=== PATIENT | male | born 1940 | race Caucasian/White ===

== ENCOUNTER 2016-06-24 06:29 | Day surgery (SDC) | payer BC, OTHER ==
[2016-06-18 11:58] VITALS: BMI 28.1
[2016-06-24] MEDS ORDERED: LIDOCAINE HCL 1%, 10 MG/ML (20ML VIAL) ONE (07:22)
[2016-06-24] MEDS ORDERED: BUPIVACAINE HCL/PF 0.5% (5MG/ML) 10 ML VIAL ONE (07:22)
[2016-06-24] MEDS ORDERED: DEXAMETHASONE SOD PHOSPHATE 4 MG/1 ML VIAL ONE (07:24)
[2016-06-24] MEDS ORDERED: ePHEDrine SULFATE 50 MG/1 ML AMPULE ONE (07:24)
[2016-06-24] MEDS ORDERED: CLINDAMYCIN PHOSPHATE 600 MG/4 ML VIAL ONE (07:24)
[2016-06-24] MEDS ORDERED: SODIUM CHLORIDE 0.9% P/F 10 ML VIAL IJ ONE (07:24)
[2016-06-24] MEDS ORDERED: KETOROLAC TROMETHAMINE 30 MG/1 ML VIAL ONE (07:24)
[2016-06-24] MEDS ORDERED: PROPOFOL 20 ML ONE ×3 (07:25)
[2016-06-24] MEDS ORDERED: SUCCINYLCHOLINE CHLORIDE 200 MG/10 ML VIAL ONE ×4 (07:25→07:28)
[2016-06-24] MEDS ORDERED: MIDAZOLAM HCL 2 MG/2 ML SINGLE DOSE VIAL ONE (07:25)
[2016-06-24] MEDS ORDERED: DESFLURANE GAS 240 ML BOTTLE IH ONE (07:38)
[2016-06-24] MEDS ORDERED: CLINDAMYCIN PHOSPHATE 600 MG/4 ML VIAL IVPB ONE (08:09)
[2016-06-24] MEDS ORDERED: LIDOCAINE HCL 1%, 10 MG/ML (20ML VIAL) IJ ONE (08:27)
[2016-06-24] MEDS ORDERED: BUPIVACAINE HCL/PF 0.5% (5MG/ML) 10 ML VIAL IJ ONE (08:28)
--- NOTE | 2016-06-24 08:57 | HP ---
Satellite H - Chief Complaint Chief Complaint: right elbow +hand numbess/pain - Past Medical History Allergies/Adverse Reactions: Allergies Allergy/AdvReac Type Severity Reaction Status Date / Time Penicillins Allergy Intermediate Hives Verified 06/18/16 12:07 - Current Medications Current Medications: Medication Instructions Recorded Cholecalciferol (Vitamin D3) 5,000 unit PO WEEKLY 06/18/16 [Vitamin D3] Levothyroxine [Synthroid -] 75 mcg PO DAILY 06/18/16 Pantoprazole Sodium 40 mg PO DAILY 06/18/16 Hydrocodone/Acetaminophen 1 each PO Q6H #40 tablet MDD 4 06/24/16 [Hydrocodon-Acetaminoph 7.5-325] Satellite Physical Exam - Physical Examination Vital Signs: Vital Signs Period Temp Pulse Resp BP Sys/Mace Pulse Ox Last 24 Hr 97.4 F 72 20 130/81 General Appearance: Well Nourished, Well Developed, Alert & Oriented x3 ENT: Clear Lung: Normal air movement Heart: Regular rate & rhythm Extremities: Other (right hand- + tinels, +phalens right elbow+ tinels emg + cts and cubital tunnel syndrome) Neurological: Intact, Alert, Oriented Satellite Impression/Plan - Impression/Plan Impression: right cts, right cubital tunnel syndrome Operative Procedure: right ctr, ulna nerve transposition Date to be Performed: 06/24/16
[2016-06-24] MEDS ORDERED: ONDANSETRON 4 MG/2 ML VIAL IVPUSH PRN (09:07)
[2016-06-24] MEDS ORDERED: oxyCODONE HCL 5 MG TABLET PO PRN (09:07)
[2016-06-24] MEDS ORDERED: LACTATED RINGERS SOLUTION 1,000 ML IV SCH (09:15)
--- NOTE | 2016-06-24 09:37 | OP ---
Operative Note - Note: Operative Date: 06/24/16 Pre-Operative Diagnosis: right Cubital tunnel syndrome, CTS, tenosynovectomy Operation: right elbow subcutaneous ulnar nerve transposition, CTR, tenosynovectomy Post-Operative Diagnosis: Same as Pre-op Surgeon: Agustin Mac Anesthesiologist/SWAGING MACHINE OPERATOR: Kevin Kenyon Jr. Anesthesia: General, Local Specimens Removed: tenosynovium, right wrist Estimated Blood Loss (mls): 0 Blood Volume Replaced (mls): 0 Fluid Volume Replaced (mls): 700 Operative Report Dictated: Yes
[2016-06-24 10:06] VITALS: TEMP 98.1
[2016-06-24 11:43] VITALS: BP 127/67; PULSE 73
--- NOTE | 2016-06-24 13:41 | SPEC ---
DATE OF OPERATION: 06/24/2016 PREOPERATIVE DIAGNOSIS: Right elbow cubital tunnel syndrome and right carpal tunnel syndrome. POSTOPERATIVE DIAGNOSIS: Right elbow cubital tunnel syndrome and right carpal tunnel syndrome. PROCEDURE: Right elbow subcutaneous ulnar nerve transposition, right carpal tunnel release, tenosynovectomy. SURGEON: Sanchez Molina MD BRICK DROPPER: None. ANESTHESIOLOGIST: Kevin Kenyon CRNA ANESTHESIA: Deep MAC anesthesia, local injection of 15 mL 0.5% Marcaine, 1% lidocaine mixed. DRAINS: None. COMPLICATIONS: None. SPECIMENS: Tenosynovium, right wrist. BLOOD LOSS: None. BLOOD GIVEN: None. FLUID REPLACEMENT: 500 mL INDICATION: The patient is a 75-year-old male with preoperative diagnosis of severe end-stage right cubital tunnel syndrome and carpal tunnel syndrome. After extensive preoperative discussions, the patient understands the potential risks, complications, alternatives, and benefits to surgery versus nonsurgical treatment. He understands that he still will have permanent damage to the nerve due to compression at both the elbow and the wrist. He has severe thenar atrophy and interossei atrophy which will not recover in appearance, but hopefully it will have recovered to some degree as far as strength and function. He also understands he may have a continuation of his numbness and some of the other symptoms associated with the nerve compression. DESCRIPTION OF PROCEDURE: The patient was brought to the operating room, peripheral IV placed and intravenous sedation was given. One gram of intravenous Ancef was given. MAC anesthesia was induced. A tourniquet was applied to the right upper arm and the right upper extremity was prepped and draped in sterile fashion. The entire case was done under 3.8 loupe magnification. A marking pen was utilized to georgie out a longitudinal incision in an already existing skin crease. Twenty mL of 0.5% Marcaine mixed with 1% Lidocaine was injected in and around the surgical incision. The right upper extremity was elevated, exsanguinated with an Esmarch bandage and the tourniquet inflated to 250 mmHg. A No. 15 scalpel blade was utilized to cut down through the skin. Subcutaneous hemostasis was achieved with the bipolar cautery. Dissection was done through the superficial palmar fascia. Self-retaining retractors were placed into the wound. Under direct visualization, the transverse carpal ligament was transected with a No. 15 scalpel blade, exposing the median nerve and the contents of the carpal tunnel. The distal and proximal extents of the release were completed with a Littler scissor and checked with irrigation and my small finger. They were seen to be complete. Limited dissection was done on the radial side of the median nerve and more extensive dissection was done on the ulnar side of the median nerve. The patients nerve was seen to be quite compressed by epineurium and therefore a limited epineurotomy was performed. A Ragnell retractor was used to gently retract the median nerve in a radial direction. The patient had a lot of tenosynovitis and therefore a limited tenosynovectomy was performed off all 9 flexor tendons. This was passed off the field as tenosynovium right wrist. The floor of the carpal tunnel was checked. There were no abnormal masses or ganglion cysts. The area was copiously irrigated and washed out and closure begun. Undyed 4-0 Vicryl was used to close the deep dermal layer. Final skin reapproximation was done with horizontal mattress 4-0 nylon sutures. The area was then washed and dried, covered with Xeroform, 4x4s, fluffs between the fingers, Webril and a 4-inch plaster roll was utilized to make a volar splint, which was then wrapped with Jose Antonio and Coban. Next, the patient's arm was placed onto a bump. A curvilinear incision was marked out over the medial epicondyle. Incision was made with a number 15 scalpel blade. Subcutaneous hemostasis was achieved with a bipolar cautery. Dissection was done down through the adipose layer, exposing the epicondyle. Self-retaining Weitlaner retractors were placed into the wound. First the ulnar nerve was identified proximally, circumferentially freed up, and Mar drain moist with irrigation was passed with a mosquito clamp around it for identification and protection. The release was continued in a more proximal direction. [place] retractors were used for better visualization. I did the release more proximally with both the long Littler scissors and my finger. I then cut out a portion of the medial intermuscular septum. Next, our attention turned more distally. I was able to incise Rincon ligament and free up the ulnar nerve in the cubital tunnel. I then dissected it between the 2 heads of the FCU and freed it up more distally. Great care was taken to preserve all small neurovascular structures. I then was able to transpose it medially over the medial epicondyle. There were no points of compression. It was able to move quite easily. The area was copiously irrigated and washed out. I then used 2-0 Vicryl to close the deep adipose layer onto the medial epicondyle. I again tested the ulnar nerve, and it seemed to have plenty of room and was not bound down. I then closed the deep dermal layer with 4-0 undyed Vicryl, and final skin reapproximation was done with a running subcuticular 4-0 Biosyn stitch. The area was then washed and dried, covered with Steri-Strips, Xeroform over the carpal tunnel, 4 x 4's for the fingers, Webril throughout, and 5-inch Orthoglass posterior splint was applied, wrapped with Jose Antonio and Guido bandages. The tourniquet was taken down after total tourniquet time of 40 minutes. There were no complications during the case. The patient tolerated the procedure quite well and was brought to the ambulatory recovery room in stable condition. SANCHEZ MOLINA M.D. [id number]
--- NOTE | 2016-06-26 12:50 | PATH ---
Surgical Pathology Report Patient Name: LIU [facility]. Rec. #: [id number] /Age/Gender: 1940 (Age: 75) / M Account: [id number] Location: [facility] SURGICAL Taken: 06/24/2016 Received: 06/24/2016 Reported: 06/26/2016 Physicians: Agustin Mac M.D. Specimen(s) Received RIGHT TENOSYNOVIUM Clinical History Right carpal tunnel Final Diagnosis SOFT TISSUE, RIGHT HAND, TENOSYNOVIUM, CARPAL TUNNEL RELEASE: TENOSYNOVIUM FIBROCONNECTIVE TISSUE WITH FOCAL MYXOID DEGENERATION. Electronically Signed Edgar Schulte M.D. Gross Description Received in formalin, labeled "right tenosynovium" is a 2.3 x 1.3 x 0.3 cm aggregate of lee-yellow, irregular portions of soft tissue, consistent with tenosynovium. The specimen is submitted in toto in one cassette. 06/24/201606/24/2016
== END 2016-06-24 11:49 | disposition home or self-care (01) ==
LOC: JASU-SURG 06:29
PROVIDERS: ATTEND Orthopaedic Surgery
PROC: 0LB50ZZ Excision of Right Lower Arm and Wrist Tendon, Open Approach (ICD-10-PCS; 2016-06-24)
PROC: 01X40Z4 Transfer Ulnar Nerve to Ulnar Nerve, Open Approach (ICD-10-PCS; principal; 2016-06-24 08:00)
PROC: 01N50ZZ Release Median Nerve, Open Approach (ICD-10-PCS; 2016-06-24 08:00)
DX: G56.01 Carpal tunnel syndrome, right upper limb (principal); G56.21 Lesion of ulnar nerve, right upper limb; M65.831 Other synovitis and tenosynovitis, right forearm
CPT/HCPCS: 88304-TC; 94760

== ENCOUNTER 2017-05-26 06:08 | Day surgery (SDC) | payer BC, OTHER ==
[2017-05-25 09:41] VITALS: BMI 28.1
[2017-05-26] MEDS ORDERED: BUPIVACAINE HCL/PF 0.5% (5MG/ML) 10 ML VIAL ONE (07:28)
[2017-05-26] MEDS ORDERED: LIDOCAINE HCL 1%, 10 MG/ML (20ML VIAL) ONE (07:28)
[2017-05-26] MEDS ORDERED: ePHEDrine SULFATE 50 MG/1 ML AMPULE ONE (07:31)
[2017-05-26] MEDS ORDERED: PROPOFOL 20 ML ONE ×6 (07:31)
[2017-05-26] MEDS ORDERED: SUCCINYLCHOLINE CHLORIDE 200 MG/10 ML VIAL ONE (07:32)
[2017-05-26] MEDS ORDERED: MIDAZOLAM HCL 2 MG/2 ML SINGLE DOSE VIAL ONE (07:32)
[2017-05-26] MEDS ORDERED: LIDOCAINE HCL/PF 2% SDV 5ML VIAL ONE (07:34)
--- NOTE | 2017-05-26 08:16 | HP ---
Satellite [facility] - Chief Complaint Chief Complaint: left hand pain, numbness, weakness History of Present Illness: left CTS and Cubital tunnel syndrome History Source: Patient Limitations to Obtaining History: No Limitations - Past Medical History Allergies/Adverse Reactions: Allergies Allergy/AdvReac Type Severity Reaction Status Date / Time Penicillins Allergy Intermediate Hives Verified 05/26/17 06:47 - Current Medications Current Medications: Home Medications Medication Instructions Recorded Cholecalciferol (Vitamin D3) 5,000 unit PO WEEKLY 06/18/16 [Vitamin D3] Levothyroxine [Synthroid -] 75 mcg PO DAILY 06/18/16 Pantoprazole Sodium 40 mg PO DAILY 06/18/16 Satellite Physical Exam - Physical Examination Vital Signs: Vital Signs Period Temp Pulse Resp BP Sys/Mace Pulse Ox Last 24 Hr 98.4 F 86 16 118/70 96 General Appearance: Well Nourished ENT: Clear Lung: Clear to auscultation Heart: Regular rate & rhythm Breasts: Soft Abdomen: Soft Extremities: No edema Satellite Impression/Plan - Impression/Plan Impression: left CTS, Cubital tunnel syndrome Operative Procedure: left CTR, subcutaneous ulnar nerve transposition Date to be Performed: 05/26/17
[2017-05-26] MEDS ORDERED: CLINDAMYCIN 600 MG PREMIX BAG IVPB ONE (08:28)
[2017-05-26] MEDS ORDERED: BUPIVACAINE HCL/PF (5 MG/ML) 30 ML VIAL IJ ONE (08:30)
[2017-05-26] MEDS ORDERED: LIDOCAINE HCL 1%, 10 MG/ML (20ML VIAL) INF ONE (08:30)
[2017-05-26] MEDS ORDERED: CLINDAMYCIN PHOSPHATE 600 MG/4 ML VIAL ONE (08:40)
--- NOTE | 2017-05-26 09:40 | OP ---
Operative Note - Note: Operative Date: 05/26/17 ([facility]) Pre-Operative Diagnosis: left cts, cubital tunnel syndrome Operation: left ctr, tenosynovectomy, and subcutaneous ulna nerve transposition Post-Operative Diagnosis: Same as Pre-op Surgeon: Agustin Mac Senior Net Software Developer: Bud Driver Anesthesiologist/NETWORK/TELECOM ENGINEER: Rigoberto Bee Anesthesia: Local, MAC Specimens Removed: tenosynovium Estimated Blood Loss (mls): 0 (tourniquet) Operative Report Dictated: Yes
[2017-05-26] MEDS ORDERED: oxyCODONE HCL 5 MG TABLET PO PRN (10:08)
[2017-05-26] MEDS ORDERED: ONDANSETRON 4 MG/2 ML VIAL IVPUSH PRN (10:08)
[2017-05-26] MEDS ORDERED: LACTATED RINGERS SOLUTION 1,000 ML IV SCH (10:15)
[2017-05-26 10:37] VITALS: TEMP 98
[2017-05-26 12:32] VITALS: BP 116/70; PULSE 70
--- NOTE | 2017-05-26 19:30 | SPEC ---
DATE OF OPERATION: 05/26/2017 PREOPERATIVE DIAGNOSIS: Left carpal tunnel syndrome and cubital tunnel syndrome. POSTOPERATIVE DIAGNOSIS: Left carpal tunnel syndrome and cubital tunnel syndrome. PROCEDURE: Left carpal tunnel release, tenosynovectomy, and subcutaneous ulnar nerve transposition. SURGEON: Agustin Mac M.D. STAINED GLASS GLAZIER HELPER: Wilmer Gallardo NURSE GROUP CONTROLLER: Rigoberto Bee CRNA ANESTHESIA: MAC anesthesia, local injection of 25 mL 0.5% Marcaine, 1% lidocaine mix. DRAINS: None. COMPLICATIONS: None. SPECIMEN: Tenosynovium left wrist. BLOOD LOSS: None. BLOOD GIVEN: None. FLUID REPLACEMENT: 700 mL INDICATION: This patient is a 76-year-old male with a preoperative diagnosis of left carpal tunnel syndrome and cubital tunnel syndrome. After understanding the potential risks, complications, alternatives, benefits to surgery versus nonsurgical treatment, the patient elected to undergo this procedure. DESCRIPTION OF PROCEDURE: The patient was brought to the operating room, peripheral IV placed and intravenous sedation was given. 600 mg of clindamycin was given. MAC anesthesia was induced. A tourniquet was applied to the left upper arm and the left upper extremity was prepped and draped in sterile fashion. The entire case was done under 3.8 loupe magnification. A marking pen was utilized to georgie out a longitudinal incision in an already existing skin crease. Twenty mL of 0.5% Marcaine mixed with 1% Lidocaine was injected in and around the surgical incision. The left upper extremity was elevated, exsanguinated with an Esmarch bandage and the tourniquet inflated to 250 mmHg. A No. 15 scalpel blade was utilized to cut down through the skin. Subcutaneous hemostasis was achieved with the bipolar cautery. Dissection was done through the superficial palmar fascia. Self-retaining retractors were placed into the wound. Under direct visualization, the transverse carpal ligament was transected with a No. 15 scalpel blade, exposing the median nerve and the contents of the carpal tunnel. The distal and proximal extents of the release were completed with a Littler scissor and checked with irrigation and my small finger. They were seen to be complete. Limited dissection was done on the radial side of the median nerve and more extensive dissection was done on the ulnar side of the median nerve. The patients nerve was seen to be quite compressed by epineurium and therefore a limited epineurotomy was performed. A Ragnell retractor was used to gently retract the median nerve in a radial direction. The patient had a lot of tenosynovitis and therefore a tenosynovectomy was performed off all 9 flexor tendons. This was passed off the field as tenosynovium left wrist. The floor of the carpal tunnel was checked. There were no abnormal masses or ganglion cysts. The area was copiously irrigated and washed out and closure begun. We then turned our attention to the medial aspect of the left elbow. A curvilinear incision was marked out with a marking pen. Subcutaneous injection of 10 mL of 0.5% Marcaine and 1% lidocaine mix. Incision was made with a number 15 scalpel blade. Subcutaneous hemostasis achieved with bipolar cautery. Dissection done down to the medial epicondyle. Adipose layer was raised off the origin of the flexor pronator mass and for later repair. The ulna was identified proximally, careful circumferential dissection was done with a blunt tipped curved Littler scissors. A Mar drain was placed around the nerve for retraction, identification, and protection. The proximal release was completed. I was able to feel with my finger there were no points of compression, and then the distal release was completed freeing the ulnar nerve from the cubital tunnel . I was able to transpose the ulnar nerve anterior to the axis of rotation of the medial epicondyle of the left elbow. It seemed to sit quite nicely with no points of compression distally or proximally. The area was copiously irrigated and washed out. Next after transposing the nerve to its new position, using 2-0 Vicryl I tacked down the deep adipose layer to the medial epicondyle, holding the nerve in position. I constantly checked the ulnar nerve to make sure it was not incorporated into any of the sutures. Next, I closed deep adipose layer with 2-0 Vicryl suture, the deep dermal layer with 4-0 undyed Vicryl, and final skin reapproximation was done with a running subcuticular 4-0 Biosyn suture. The area was then washed and dried, covered with Steri-Strips, 4x4s, Webril, fluffs between the fingers, and a 6-inch posterior tourniquet was taken down after a total tourniquet time of 44 minutes. There were no complications during the case. The patient tolerated the procedure well and was brought to the ambulatory recovery room in stable condition. Nathan [id number]
--- NOTE | 2017-05-27 14:30 | PATH ---
Surgical Pathology Report Patient Name: LIU [facility]. Rec. #: [id number] /Age/Gender: 1940 (Age: 76) / M Account: [id number] Location: [facility] SURGICAL Taken: 05/26/2017 Received: 05/26/2017 Reported: 05/27/2017 Physicians: Agustin Mac M.D. Specimen(s) Received LEFT WRIST TENOSYNOVIUM Clinical History Carpal tunnel Final Diagnosis TENOSYNOVIUM, WRIST, LEFT, EXCISION: DENSE CONNECTIVE TISSUE CONSISTENT WITH TENDON. Electronically Signed Sophie Evangelista M.D. Gross Description Received in formalin labeled "left wrist tenosynovium," is a 0.7 x 0.6 x 0.2 cm lee-yellow, irregular portion of soft tissue. The specimen is submitted in toto in one cassette. /05/26/201705/26/2017
== END 2017-05-26 12:25 | disposition home or self-care (01) ==
LOC: JASU-SURG 06:08
PROVIDERS: ATTEND Orthopaedic Surgery
PROC: 01N50ZZ Release Median Nerve, Open Approach (ICD-10-PCS; principal; 2017-05-26 08:00)
PROC: 01S40ZZ Reposition Ulnar Nerve, Open Approach (ICD-10-PCS; 2017-05-26 08:00)
DX: G56.02 Carpal tunnel syndrome, left upper limb (principal); G56.22 Lesion of ulnar nerve, left upper limb
CPT/HCPCS: 88304-TC; 94760